=== PATIENT | female | born 1970 | race Hispanic/Latino ===

== ENCOUNTER 2021-02-22 21:25 | Emergency (ER) | payer OTHER ==
[~2021-02-22] VITALS: Ht 147.3 cm; Wt 65.3 kg
[2021-02-22 21:28] VITALS: BP 143/89
[2021-02-22 22:25] LABS: BASOPHILS % (AUTO) 0.5 % (0.0-5.0); EOSINOPHILS % (AUTO) 1.7 % (0.0-8.0); HEMATOCRIT 34.6 % (36-48); LYMPHOCYTES % (AUTO) 43.7 % (21.0-51.0); MEAN CORPUSCULAR HGB CONC 41.3 g/dL (32.0-36.0); MEAN CORPUSCULAR VOLUME 94.3 fL (79-99); NEUTROPHILS % (AUTO) 47.7 % (40.0-77.0); PLATELET COUNT (AUTO) 297 K/uL (130-400); RED BLOOD CELL COUNT(AUTO) 3.67 MIL/uL (4.00-5.50); RED CELL DISTRIBUTION WIDTH 12.1 % (11.0-15.5); WHITE BLOOD COUNT (AUTO) 10.9 K/uL (4.8-10.8)
[2021-02-22 22:48] LABS: CREATININE 0.6 mg/dL (0.5-1.5); POTASSIUM 3.7 mmol/L (3.5-5.1)
[2021-02-22 22:54] LABS: ALBUMIN 3.7 g/dL (3.5-5.0); BILIRUBIN,TOTAL 0.2 mg/dL (0.2-1.0); CRP QUANTITATIVE 4.2 mg/L (0.00-9.0)
[2021-02-22 23:31] LABS: ERYTHROCYTE SEDIMENTATION RATE 41 MM/HR (0-20)
[2021-02-22] MEDS ORDERED: KETOROLAC 30MG VIAL (30MG/ML) ONE (23:56)
[2021-02-23] MEDS ORDERED: KETOROLAC 30MG VIAL (30MG/ML) IM ONE
[2021-02-23] MEDS ORDERED: IBUP-2070 PO (00:18)
== END 2021-02-23 00:24 | disposition home or self-care (01) ==
LOC: EDH 21:25
DX: S90.112A Contusion of left great toe without damage to nail, initial encounter (principal); B35.1 Tinea unguium; F20.9 Schizophrenia, unspecified; F31.9 Bipolar disorder, unspecified; X58.XXXA Exposure to other specified factors, initial encounter; Y93.89 Activity, other specified; Y92.89 Other specified places as the place of occurrence of the external cause; Y99.8 Other external cause status
CPT/HCPCS: 36415; 73630; 80053; 83605; 85025; 85651; 86140; 87040 ×2; 96372; 99284; J1885